=== PATIENT | male | born 1975 | race Caucasian/White ===

== ENCOUNTER 2024-10-12 14:22 | Outpatient (AMB) | payer OTHER, SELFPAY ==
--- NOTE | 2024-10-12 14:55 | MHC.OFFVIS ---
Vital Signs 10/12/24 14:59 Height 6 ft 1 in Weight 254 lb 6 oz BMI 33.6 Pulse 63 Pulse Source Pulse Oximeter Pulse Oximetry (%) 96 Oxygen Delivery Method Room Air Intake Visit Reasons: ENP - AMOS Intake Note: Patient presents [employer] AMOS. Patient had CPAP that stopped working needs new machine. Last sleep study 2009. Patient uses [facility]. Has not had CPAP since July. Accompanied by: Self / Same As Patient Allergies No Known Allergies Allergy (Verified 10/12/24 15:01) HPI Comments Details: 49 year old male with htn referred to us for an evaluation of amos. BP is well managed on lisinopril and amlodipine. He is a former smoker. His last sleep study was over 10 years ago with [employer] [facility] [employer]. They require a sleep study for a new machine to replace his original. His machine stopped working in July 2024 and now he notices his mouth gets dried out and his c/o loud snoring. He denies gasping for air or apneas as he is uncertain. Denies, bruxism, morning headaches. Denies RLS symtpoms. He tore his r. meniscus in 2009. Multiple tick bites, and has chronic joint pain as he is always in the mehta. He denies brain fog, and memory difficulties. Diet is stable and mood is okay. [facility] Medical History Shoulder pain AMOS (obstructive sleep apnea) Obesity, class 1 HTN (hypertension) Hyperlipidemia LDL goal <100 Hyperglycemia Social History Alcohol intake: current Alcohol intake frequency: holidays/special occasions only Patient Tobacco Use Status: Former Tobacco user e-Cigarette/Vaping Use: Never Used Physical Exam Vital Signs: Last Vital Signs Pulse 63 10/12/24 14:59 Pulse Ox 96 10/12/24 14:59 Oxygen Delivery Method Room Air 10/12/24 14:59 BMI result Body Mass Index 33.6 Const General: cooperative, comfortable and no acute distress Nutritional Appearance: average body habitus Orientation/consciousness: patient oriented x3 Eyes Pupils: Equal, round and reactive pupils present Neck Neck: Yes full ROM Resp Effort & Inspection: normal respiratory effort and able to speak in complete sentences Neuro Other: mallampti score of 4 General: patient oriented x3 and moves all extremities Cranial nerves: Yes Equal, round and reactive pupils present, Yes Normal accommodation reflex present, Yes Normal facial strength present, Yes Midline tongue present, Yes Ability to bilaterally rotate head present and Yes Ability to bilaterally elevate shoulders present Cognition (Neuro): normal cognition Gait exam (Neuro): Normal gait present Motor exam (neuro): 5/5 motor strength present throughout and Normal motor muscle tone present throughout Psych Appearance: grossly normal Affect: normal affect Thought process: Normal thought process present Assessment & Plan Assessment & Plan (1) AMOS on CPAP: Comment: HST was completed >10 years ago. Code(s): G47.33 - Obstructive sleep apnea (adult) (pediatric) Category: Medical (2) Excessive daytime sleepiness: Comment: request labs from [facility] Code(s): G47.19 - Other hypersomnia Category: Medical Plan AMOS on cpap - needs HST for new machine per his cpap company [employer]. Fatigue r/o nutritional deficiencies with labs. Orders: Orders Methylmalonic Acid Today G47.19 - Other hypersomnia, G47.9 - Sleep disorder, unspecified, R53.83 - Other fatigue Ferritin Today G47.19 - Other hypersomnia RT home sleep study Today G47.19 - Other hypersomnia Vitamin D 25-OH Total Today G47.19 - Other hypersomnia Vitamin B12 and Folate Today G47.19 - Other hypersomnia TSH reflex Free T4 Today G47.19 - Other hypersomnia Homocysteine Today G47.19 - Other hypersomnia, G47.9 - Sleep disorder, unspecified, R53.83 - Other fatigue Patient Instructions: Sleep Hygiene provided: set a scheduled bedtime and wake time to help regulate the circadian rhythm and balance the release of pituitary hormones. Sleep in a dark room, temperatures below 68 degrees, and no devices n bed. Limit caffeinated products 6 hours prior to bed, and limit fluids 2-4 hours prior to bed. Gentle night yoga, diffusing essential oils, and playing soft music can be relaxing. Coding Level of Care Code New Pt Level 4 (03900) Diagnoses AMOS on CPAP G47.33 Excessive daytime sleepiness G47.19 Time Spent (min) 20 Comment evalution of amos
[2024-10-12 14:59] VITALS: PULSE 63; O2SAT 96; BMI 33.6
--- OUTSIDE RECORDS SUMMARY | 2024-10-12 15:12 | XMS_ITS | Clinical Summary ---
Author Organization [facility] Address [address] [place] [phone] Phone Care Team Providers [employer] [facility] Name Role Phone Cyril Acevedo MD Primary Care Provider [phone] Allergies No known active allergies Medications amLODIPine (NORVASC) 10 MG tablet 02/27/2019 Active lisinopril-hydro CHLOROthiazide (PRINZIDE,ZESTOR ETIC) 20-25 mg per tablet Take 1 tablet by mouth daily. 5 01/31/2019 Active fluticasone propionate (FLONASE) 50 mcg/actuation nasal spray 2 sprays by Nasal route daily as needed (ear fullness). 16 g 12 03/11/2019 Active pseudoephedrine (SUDAFED) 60 MG tablet Take 1 tablet (60 mg total) by mouth every 6 (six) hours as needed for congestion. 30 tablet 03/11/2019 Active Active Problems No known active problems Social History Tobacco Use Types Packs/Day Years Used Date Smoking Tobacco: Never Smokeless Tobacco: Never Education Answer Date Recorded Are you interested in more education? Not on kayli e 07/20/2022 Are you concerned about learning? Not on file 07/20/2022 No 07/20/2022 No 07/20/2022 Digital Access Answer Date Recorded No 08/18/2022 No 08/18/2022 No 08/18/2022 Reliable internet access at home? Not on file 08/18/2022 Device with a working camera? Not on file Sex and Gender Information Value Date Recorded Sex Assigned at Not on file Legal Sex Male 4:20 PM EST Gender Identity Not on file Sexual Orientation Not on file Last Filed Vital Signs Vital Sign Reading Time Taken Comments Blood Pressure 162/90 03/11/2019 12:09 PM EST Pulse 68 03/11/2019 12:09 PM EST Temperature 36.9 C (98.4 F) 03/11/2019 12:09 PM EST Respiratory Rate 18 03/11/2019 12:09 PM EST Oxygen Saturation 97% 03/11/2019 12:09 PM EST Inhaled Oxygen Concentration - - Weight 127 kg (280 lb) 03/11/2019 12:09 PM EST Height 185.4 cm (6' 1 ) 03/11/2019 12:09 PM EST Body Mass Index 36.94 03/11/2019 12:09 PM EST Plan of Treatment Health Maintenance Due Date Last Done Comments CREATININE LEVEL 1977 LIPID PANEL 1977 POTASSIUM LEVEL 1977 DEPRESSION SCREENING 1989 HEPATITIS C SCREENING 07/30/1995 HIV ONE-TIME SCREENING (18-6 5 YEARS) 07/30/1995 COLOGUARD 2022 COLONOSCOPY 2022 COLORECTAL CANCER SCREENING 2022 FIT TEST 2022 FOBT 2022 SIGMOIDOSCOPY 2022 VIRTUAL COLONOSCOPY 2022 COVID-19 VACCINE (3 - 2023-2 5 season) 2023 12/03/2020, 11/11/2020 Adult Td,Tdap Booster 10/12/2029 10/13/2019 , 02/17/2018 SMOKING STATUS SCREENING (On ce After 26 Yrs) Completed 03/11/2019 HEPATITIS A VACCINES Aged Out No long er eligible based on patient's age to complete this topic HIB VACCINES Aged Out No longer eligi ble based on patient's age to complete this topic MENINGOCOCCAL VACCINES (ACWY) Aged Out No longer eligible based on patient's age to complete this topic MENINGOCOCCAL VACCINES (B) Aged Out N o longer eligible based on patient's age to complete this topic PNEUMOCOCCAL VACCINES (0-49 years) Aged Out No longer eligible b ased on patient's age to complete this topic Medical Devices Not on file [place] [address] [place] [id number] [facility] PPO [facility] PPO [facility] PPO [facility] P[facility] PPO [employer] Relationship Specialty Start Date End Date Cyril Acevedo MD [address] [place] [phone] PCP - General Internal Medicine 03/07/19 Additional Source Comments The information contained in this document represents components of the legal health record. It is not the complete legal health record.[facility]
== END 2024-10-12 15:43 | disposition home or self-care (01) ==
LOC: HO.HSMS 14:23
PROVIDERS: PCP Physician Assistant; Visit Provider Physician Assistant Medical
DX: G47.33 Obstructive sleep apnea (adult) (pediatric) (principal); G47.19 Other hypersomnia
CPT/HCPCS: 99204

== ENCOUNTER → 2025-03-03 09:49 | Outpatient (REF) | payer OTHER, SELFPAY | LOC: HO.SL 09:49 | PROVIDERS: Visit Provider Physician Assistant Medical | DX: G47.19 Other hypersomnia (principal) | CPT/HCPCS: 95806 ==

== ENCOUNTER → 2025-03-03 10:06 | Outpatient (BNV) | payer OTHER, SELFPAY | PROVIDERS: Visit Provider Psychiatry & Neurology Neurology | DX: G47.33 Obstructive sleep apnea (adult) (pediatric) (principal) | CPT/HCPCS: 95806 ==